=== PATIENT | male | born 1975 | race Caucasian/White ===

== ENCOUNTER 2022-05-05 17:54 | Observation (INO) ==
--- NOTE | 2022-05-05 18:18 | ED.PDOC ---
General <JAYLEEN CHAIREZ MD - Last Filed: 05/05/22 18:41> ED Provider: Dr. 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, hx chf, +cuellar, no fever, no chest pain, +palpitations, no loc, gcs 15, hx htn Time Seen by Provider: 05/05/22 17:55 Mode of Arrival: Walk-In Information Source: Patient Primary Care Provider: MOLLY THURMAN Does patient meet sepsis criteria?: Yes If yes, has appropriate treatment been initiated?: No System Inflammatory Response Syndrome: Not Applicable Sepsis Protocol: For patient's 13 years and over: Temp is 96.8 and below OR 101 and greater Pulse >90 BPM Resp >20/minute Acutely Altered Mental Status Are patient's symptoms suggestive of a new infection, such as: -Pneumonia -Skin, Soft Tissue -Endocarditis -UTI -Bone, Joint Infection -Implantable Device -Acute Abdominal Infection -Wound Infection -Meningitis -Blood Stream Catheter Infection -Unknown <CRISTIANA DIAZ MD - Last Filed: 05/06/22 02:48> Nursing and Triage Documentation Reviewed and Agree: Yes Review of Systems <JAYLEEN CHAIREZ MD - Last Filed: 05/05/22 18:41> Review Of Systems Constitutional: Denies Fever Eyes: Denies Vision change Ears, Nose, Mouth, Throat: Denies Throat pain Respiratory: Reports Short of air Cardiac: Reports Palpitations; Denies Chest pain or Syncope GI: Denies Abdominal pain or Vomiting : Denies Frequency Musculoskeletal: Denies Back pain or Neck pain Skin: Reports Rash; Denies Cyanosis Neurological: Denies Cognitive dysfunction or Headache All Other Systems: Other PFSH <JAYLEEN CHAIREZ MD - Last Filed: 05/05/22 18:41> Medical History CHF (congestive heart failure) ICD (implantable cardioverter-defibrillator) in place Family History FATHER Cancer of esophagus PATERNAL GRANDFATHER Heart attack Other Cancer Social History Smoking and tobacco status: Current every day smoker Tobacco type: cigarettes Alcohol intake: former Details: REPORTS DOES NOT DRINK ANY MORE, WAS AN ALCOHOLIC Surgical History History of mandibular surgery Physical Exam <JAYLEEN CHAIREZ MD - Last Filed: 05/05/22 18:41> Physical Exam Appearance: Reports No pain distress Ill-appearing: None Pain Distress: None Eyes: Reports Conjunctiva clear ENT: Reports Oropharynx normal Neck: Supple Respiratory: Reports Airway patent, Breath sounds clear and Breath sounds equal Cardiovascular: Reports RRR GI/: Reports Soft and Nontender Musculoskeletal: Reports ROM intact and Edema (sen and pulses intact, no streaks, [id number] left ankle, [id number] right ankle, both noncircumferential) Skin: Reports Warm and Dry Neurological: Reports Alert and Oriented Psychiatric: Reports Affect appropriate Interpretation <JAYLEEN CHAIREZ MD - Last Filed: 05/05/22 18:41> EKG Interpretation Time of EKG #1: 18:37 Rate: Normal Rhythm: Sinus Interpretation: lvh, no stemi <CRISTIANA DIAZ MD - Last Filed: 05/06/22 02:48> Critical Care Note Total Critical Care Time (mins): 0 Course <JAYLEEN CHAIREZ MD - Last Filed: 05/05/22 18:41> Course Hematology/Chemistry: 05/05/22 18:31 05/05/22 18:31 Orders, Labs, Meds: Lab Review 05/05/22 05/05/22 05/05/22 18:20 18:31 18:31 WBC 15.19 H RBC 4.76 Hgb 15.8 Hct 45.7 MCV 96.0 H MCH 33.2 H MCHC 34.6 RDW Coeff of Jhonatan 12.8 Plt Count 244 Immature Gran % (Auto) 0.3 Neut % (Auto) 80.8 H Lymph % (Auto) 8.4 L [place] % (Auto) 9.7 Eos % (Auto) 0.5 Baso % (Auto) 0.3 Neut # (Auto) 12.3 H Lymph # (Auto) 1.3 [place] # (Auto) 1.5 Eos # (Auto) 0.1 Baso # (Auto) 0.0 Immature Gran # (Auto) 0.1 PT 11.6 H INR 1.13 Sodium Potassium Chloride Carbon Dioxide Anion Gap BUN Creatinine Estimated GFR (MDRD) BUN/Creatinine Ratio Glucose Calcium Total Bilirubin AST ALT Alkaline Phosphatase Troponin I NT-Pro-B Natriuret Pep Total Protein Albumin Globulin Albumin/Globulin Ratio D-Dimer Urine Opiates Screen Ur Oxycodone Screen Urine Methadone Screen Ur Propoxyphene Screen Ur Barbiturates Screen U Tricyclic Antidepress Ur Phencyclidine Scrn Ur Amphetamine Screen U Methamphetamines Scrn U Benzodiazepines Scrn Urine Cocaine Screen U Cannabinoids Screen Plasma/Serum Alcohol SARS CoV-2 RNA Rapid JESSY Negative 05/05/22 05/05/22 05/05/22 18:31 18:31 19:12 WBC RBC Hgb Hct MCV MCH MCHC RDW Coeff of Jhonatan Plt Count Immature Gran % (Auto) Neut % (Auto) Lymph % (Auto) [place] % (Auto) Eos % (Auto) Baso % (Auto) Neut # (Auto) Lymph # (Auto) [place] # (Auto) Eos # (Auto) Baso # (Auto) Immature Gran # (Auto) PT INR Sodium 136.6 Potassium 3.54 Chloride 94.8 L Carbon Dioxide 34.9 H Anion Gap 10.44 BUN 17.6 Creatinine 1.17 H Estimated GFR (MDRD) 66.00 BUN/Creatinine Ratio 15.04 Glucose 100.9 Calcium 8.42 Total Bilirubin 1.27 AST 39.2 ALT 18.4 Alkaline Phosphatase 63.9 Troponin I < 0.012 NT-Pro-B Natriuret Pep 347 H Total Protein 7.46 Albumin 4.62 Globulin 2.84 Albumin/Globulin Ratio 1.62 D-Dimer 1054.00 H Urine Opiates Screen Negative Ur Oxycodone Screen Negative Urine Methadone Screen Negative Ur Propoxyphene Screen Negative Ur Barbiturates Screen Negative U Tricyclic Antidepress Negative Ur Phencyclidine Scrn Negative Ur Amphetamine Screen Positive H U Methamphetamines Scrn Positive H U Benzodiazepines Scrn Negative Urine Cocaine Screen Negative U Cannabinoids Screen Positive H Plasma/Serum Alcohol < 10.0 SARS CoV-2 RNA Rapid JESSY Orders Category Date Time Status EKG-(ED ONLY) Stat CARDIO 05/05/22 18:18 Completed BLOOD ALCOHOL Stat LAB 05/05/22 18:31 Completed BLOOD CULTURE Stat LAB 05/05/22 19:12 Received CBC W/ AUTO DIFF Stat LAB 05/05/22 18:31 Completed CMP [COMPREHENSIVE METABOLIC PANEL] Stat LAB 05/05/22 18:31 Completed D-DIMER Stat LAB 05/05/22 18:31 Completed DRUG SCREEN, URINE, RAPID Stat LAB 05/05/22 19:12 Completed NT-PROBNP(ED) Stat LAB 05/05/22 18:31 Completed PT WITH INR Stat LAB 05/05/22 18:31 Completed SARS COV-2 RNA RAPID JESSY Stat LAB 05/05/22 18:20 Completed TROPONIN I Stat LAB 05/05/22 18:31 Completed Ampicillin Sodium/Sulbactam Na [Unasyn] MEDS 05/05/22 18:59 Discontinued 3 gm .ROUTE .STK-MED ONE Ampicillin Sodium/Sulbactam Na [Unasyn] 3 gm MEDS 05/05/22 18:43 Discontinued 0.9 % Sodium Chloride [Sodium Chloride 100Ml] 100 ml IV ONCE ANKLE, LEFT MIN 3 VIEWS Stat RADS 05/05/22 18:39 Completed ANKLE, RIGHT MIN 3 VIEWS Stat RADS 05/05/22 18:39 Completed CHEST, 1V AP ONLY Stat RADS 05/05/22 18:18 Completed Medications Generic Name Dose Route Start Last Admin Trade Name Freq PRN Reason Stop Dose Admin Acetaminophen 650 mg 05/05/22 20:16 Acetaminophen 325 Mg Tablet PO Q4H PRN Fever and Mild Pain Carvedilol 6.25 mg 05/05/22 21:00 05/05/22 22:08 Carvedilol 6.25 Mg Tablet PO 6.25 mg BIDWM HAYLEE Administration Enoxaparin Sodium 40 mg 05/06/22 09:00 Enoxaparin Sodium 40 Mg/0.4 Ml Syr SUBCUT DAILY HAYLEE Furosemide 20 mg 05/06/22 09:00 Furosemide Inj 20 Mg/2 Ml Vial IVP DAILY HAYLEE Cefazolin Sodium/Dextrose 1 gm in 50 mls @ 75 mls/hr 05/05/22 21:00 05/05/22 22:07 Ancef 1 Gm/50 Ml D5w IV 05/08/22 20:59 75 mls/hr Q8HR HAYLEE Administration Ibuprofen 600 mg 05/05/22 20:16 Ibuprofen 600 Mg Tablet PO Q6H PRN Mild Pain Lisinopril 20 mg 05/06/22 09:00 Lisinopril 10 Mg Tablet PO DAILY HAYLEE Lorazepam 0.5 mg 05/05/22 21:03 05/05/22 22:08 Lorazepam 0.5 Mg Tablet PO 0.5 mg Q6-8H PRN Administration anxiety Nicotine 1 patch 05/05/22 21:13 05/05/22 22:08 Nicotine 21 Mg Patch.Td24 TD 1 patch DAILY HAYLEE Administration Non-Formulary Medication 100 mg 05/06/22 09:00 Sildenafil PO DAILY HAYLEE Ondansetron HCl 4 mg 05/05/22 20:16 Ondansetron Hcl/Pf 4 Mg/2 Ml Sdv IVP Q6H PRN Nausea / Vomiting Sertraline HCl 100 mg 05/06/22 09:00 Sertraline Hcl 50 Mg Tablet PO DAILY HAYLEE Trazodone HCl 150 mg 05/05/22 21:00 05/05/22 22:07 Trazodone Hcl 50 Mg Tablet PO 150 mg BEDTIME HAYLEE Administration Discontinued Medications Generic Name Dose Route Start Last Admin Trade Name Freq PRN Reason Stop Dose Admin Ampicillin Sodium/Sulbactam 100 mls @ 100 mls/hr 05/05/22 18:43 05/05/22 19:13 Sodium 3 gm/ Sodium Chloride IV 05/05/22 19:42 100 mls/hr ONCE ONE Administration Lorazepam 0.5 mg 05/05/22 20:22 Lorazepam 0.5 Mg Tablet PO PRN PRN anxiety Nicotine 1 patch 05/06/22 09:00 Nicotine 21 Mg Patch.Td24 TD DAILY HAYLEE Vital Signs: Temp Pulse Resp BP Pulse Ox 05/05/22 19:35 99.1 F 81 18 121/82 96 05/05/22 17:56 98.6 F 99 20 153/96 H 93 L <CRISTIANA DIAZ MD - Last Filed: 05/06/22 02:48> Course Orders, Labs, Meds: Lab Review 05/05/22 05/05/22 05/05/22 18:20 18:31 18:31 WBC 15.19 H RBC 4.76 Hgb 15.8 Hct 45.7 MCV 96.0 H MCH 33.2 H MCHC 34.6 RDW Coeff of Jhonatan 12.8 Plt Count 244 Immature Gran % (Auto) 0.3 Neut % (Auto) 80.8 H Lymph % (Auto) 8.4 L [place] % (Auto) 9.7 Eos % (Auto) 0.5 Baso % (Auto) 0.3 Neut # (Auto) 12.3 H Lymph # (Auto) 1.3 [place] # (Auto) 1.5 Eos # (Auto) 0.1 Baso # (Auto) 0.0 Immature Gran # (Auto) 0.1 PT 11.6 H INR 1.13 Sodium Potassium Chloride Carbon Dioxide Anion Gap BUN Creatinine Estimated GFR (MDRD) BUN/Creatinine Ratio Glucose Calcium Total Bilirubin AST ALT Alkaline Phosphatase Troponin I NT-Pro-B Natriuret Pep Total Protein Albumin Globulin Albumin/Globulin Ratio D-Dimer Urine Opiates Screen Ur Oxycodone Screen Urine Methadone Screen Ur Propoxyphene Screen Ur Barbiturates Screen U Tricyclic Antidepress Ur Phencyclidine Scrn Ur Amphetamine Screen U Methamphetamines Scrn U Benzodiazepines Scrn Urine Cocaine Screen U Cannabinoids Screen Plasma/Serum Alcohol SARS CoV-2 RNA Rapid JESSY Negative 05/05/22 05/05/22 05/05/22 18:31 18:31 19:12 WBC RBC Hgb Hct MCV MCH MCHC RDW Coeff of Jhonatan Plt Count Immature Gran % (Auto) Neut % (Auto) Lymph % (Auto) [place] % (Auto) Eos % (Auto) Baso % (Auto) Neut # (Auto) Lymph # (Auto) [place] # (Auto) Eos # (Auto) Baso # (Auto) Immature Gran # (Auto) PT INR Sodium 136.6 Potassium 3.54 Chloride 94.8 L Carbon Dioxide 34.9 H Anion Gap 10.44 BUN 17.6 Creatinine 1.17 H Estimated GFR (MDRD) 66.00 BUN/Creatinine Ratio 15.04 Glucose 100.9 Calcium 8.42 Total Bilirubin 1.27 AST 39.2 ALT 18.4 Alkaline Phosphatase 63.9 Troponin I < 0.012 NT-Pro-B Natriuret Pep 347 H Total Protein 7.46 Albumin 4.62 Globulin 2.84 Albumin/Globulin Ratio 1.62 D-Dimer 1054.00 H Urine Opiates Screen Negative Ur Oxycodone Screen Negative Urine Methadone Screen Negative Ur Propoxyphene Screen Negative Ur Barbiturates Screen Negative U Tricyclic Antidepress Negative Ur Phencyclidine Scrn Negative Ur Amphetamine Screen Positive H U Methamphetamines Scrn Positive H U Benzodiazepines Scrn Negative Urine Cocaine Screen Negative U Cannabinoids Screen Positive H Plasma/Serum Alcohol < 10.0 SARS CoV-2 RNA Rapid JESSY Orders Category Date Time Status EKG-(ED ONLY) Stat CARDIO 05/05/22 18:18 Completed BLOOD ALCOHOL Stat LAB 05/05/22 18:31 Completed BLOOD CULTURE Stat LAB 05/05/22 19:12 Received CBC W/ AUTO DIFF Stat LAB 05/05/22 18:31 Completed CMP [COMPREHENSIVE METABOLIC PANEL] Stat LAB 05/05/22 18:31 Completed D-DIMER Stat LAB 05/05/22 18:31 Completed DRUG SCREEN, URINE, RAPID Stat LAB 05/05/22 19:12 Completed NT-PROBNP(ED) Stat LAB 05/05/22 18:31 Completed PT WITH INR Stat LAB 05/05/22 18:31 Completed SARS COV-2 RNA RAPID JESSY Stat LAB 05/05/22 18:20 Completed TROPONIN I Stat LAB 05/05/22 18:31 Completed Ampicillin Sodium/Sulbactam Na [Unasyn] MEDS 05/05/22 18:59 Discontinued 3 gm .ROUTE .STK-MED ONE Ampicillin Sodium/Sulbactam Na [Unasyn] 3 gm MEDS 05/05/22 18:43 Discontinued 0.9 % Sodium Chloride [Sodium Chloride 100Ml] 100 ml IV ONCE ANKLE, LEFT MIN 3 VIEWS Stat RADS 05/05/22 18:39 Completed ANKLE, RIGHT MIN 3 VIEWS Stat RADS 05/05/22 18:39 Completed CHEST, 1V AP ONLY Stat RADS 05/05/22 18:18 Completed Medications Generic Name Dose Route Start Last Admin Trade Name Freq PRN Reason Stop Dose Admin Acetaminophen 650 mg 05/05/22 20:16 Acetaminophen 325 Mg Tablet PO Q4H PRN Fever and Mild Pain Carvedilol 6.25 mg 05/05/22 21:00 05/05/22 22:08 Carvedilol 6.25 Mg Tablet PO 6.25 mg BIDWM HAYLEE Administration Enoxaparin Sodium 40 mg 05/06/22 09:00 Enoxaparin Sodium 40 Mg/0.4 Ml Syr SUBCUT DAILY HAYLEE Furosemide 20 mg 05/06/22 09:00 Furosemide Inj 20 Mg/2 Ml Vial IVP DAILY HAYLEE Cefazolin Sodium/Dextrose 1 gm in 50 mls @ 75 mls/hr 05/05/22 21:00 05/05/22 22:07 Ancef 1 Gm/50 Ml D5w IV 05/08/22 20:59 75 mls/hr Q8HR HAYLEE Administration Ibuprofen 600 mg 05/05/22 20:16 Ibuprofen 600 Mg Tablet PO Q6H PRN Mild Pain Lisinopril 20 mg 05/06/22 09:00 Lisinopril 10 Mg Tablet PO DAILY HAYLEE Lorazepam 0.5 mg 05/05/22 21:03 05/05/22 22:08 Lorazepam 0.5 Mg Tablet PO 0.5 mg Q6-8H PRN Administration anxiety Nicotine 1 patch 05/05/22 21:13 05/05/22 22:08 Nicotine 21 Mg Patch.Td24 TD 1 patch DAILY HAYLEE Administration Non-Formulary Medication 100 mg 05/06/22 09:00 Sildenafil PO DAILY HAYLEE Ondansetron HCl 4 mg 05/05/22 20:16 Ondansetron Hcl/Pf 4 Mg/2 Ml Sdv IVP Q6H PRN Nausea / Vomiting Sertraline HCl 100 mg 05/06/22 09:00 Sertraline Hcl 50 Mg Tablet PO DAILY HAYLEE Trazodone HCl 150 mg 05/05/22 21:00 05/05/22 22:07 Trazodone Hcl 50 Mg Tablet PO 150 mg BEDTIME HAYLEE Administration Discontinued Medications Generic Name Dose Route Start Last Admin Trade Name Freq PRN Reason Stop Dose Admin Ampicillin Sodium/Sulbactam 100 mls @ 100 mls/hr 05/05/22 18:43 05/05/22 19:13 Sodium 3 gm/ Sodium Chloride IV 05/05/22 19:42 100 mls/hr ONCE ONE Administration Lorazepam 0.5 mg 05/05/22 20:22 Lorazepam 0.5 Mg Tablet PO PRN PRN anxiety Nicotine 1 patch 05/06/22 09:00 Nicotine 21 Mg Patch.Td24 TD DAILY HAYLEE Vital Signs: Temp Pulse Resp BP Pulse Ox 05/05/22 19:35 99.1 F 81 18 121/82 96 05/05/22 17:56 98.6 F 99 20 153/96 H 93 L Discharge Plan Discharge Patient Disposition: PLACED OBSERVATION Discharge Problem: Cellulitis of right lower leg, Edema of right lower leg ED Provider: JAYLEEN CHAIREZ Condition: Stable <JAYLEEN CHAIREZ MD - Last Filed: 05/05/22 18:41> Physician Progress Note: care to the midnight doctor at 19:00 []
[2022-05-05 18:36] LABS: BASOPHILS % (AUTO) 0.3 % (0.0-3.0); EOSINOPHILS # (AUTO) 0.1 K/ul (0.0-0.7); EOSINOPHILS % (AUTO) 0.5 % (0.0-7.0); HEMATOCRIT 45.7 % (42.0-52.0); HEMOGLOBIN 15.8 g/dl (14.0-18.0); IMMATURE GRANULOCYTE # (AUTO) 0.1 (0.0-1.0); IMMATURE GRANULOCYTE % (AUTO) 0.3 % (0.0-5.0); LYMPHOCYTES # (AUTO) 1.3 K/uL (0.60-3.4); LYMPHOCYTES % (AUTO) 8.4 (10.0-50.0); MEAN CORPUSCULAR HEMOGLOBIN 33.2 pg (27.0-31.0); MEAN CORPUSCULAR HGB CONC 34.6 (31.8-35.4); MONOCYTES # (AUTO) 1.5 K/uL (0.4-2.0); MONOCYTES % (AUTO) 9.7 (0-10); NEUTROPHILS # (AUTO) 12.3 K/ul (2.0-6.9); NEUTROPHILS % (AUTO) 80.8 % (42.2-75.2); PLATELET COUNT 244 10^3/uL (140-440); RDW COEFFICIENT OF VARIATION 12.8 % (11.6-14.8); RED BLOOD COUNT 4.76 10^6/ul (4.70-6.10); WHITE BLOOD COUNT 15.19 K/ul (4.2-10.2)
[2022-05-05] MEDS ORDERED: UNASYN 3 GM in SODIUM CHLORIDE 100ML 100 ML IV ONE (18:43)
[2022-05-05 18:47] LABS: PROTHROMBIN TIME 11.6 SEC (9.3-11.0)
--- NOTE | 2022-05-05 18:49 | DI ---
EXAMINATION: AP CHEST RADIOGRAPH. HISTORY: Short of breath COMPARISON: None available. FINDINGS: Mild right infrahilar atelectasis is seen.No focal consolidation, pleural effusion or pneumothorax is identified. The cardiomediastinal silhouette is within normal limits. A left chest wall pacing device is noted. IMPRESSION: No acute cardiopulmonary findings. Mild right infrahilar atelectasis.
[2022-05-05 18:50] LABS: ALANINE AMINOTRANSFERASE 18.4 U/L (0-50); ALBUMIN 4.62 g/dL (3.5-5.0); ALKALINE PHOSPHATASE 63.9 U/L (38-126); ASPARTATE AMINO TRANSFERASE 39.2 U/L (17-59); BILIRUBIN,TOTAL 1.27 mg/dL (0.2-1.3); BLOOD UREA NITROGEN 17.6 mg/dL (9-20); CALCIUM 8.42 mg/dL (8.4-10.2); CARBON DIOXIDE 34.9 mmol/L (22-30.0); CHLORIDE 94.8 mmol/L (98-107); CREATININE 1.17 mg/dL (0.60-1.10); GLUCOSE 100.9 mg/dL (74-106); POTASSIUM 3.54 mmol/L (3.5-5.1); SODIUM 136.6 mmol/L (134.5-145); TOTAL PROTEIN 7.46 g/dL (6.3-8.2)
[2022-05-05] MEDS ORDERED: UNASYN ONE (18:59)
[2022-05-05 19:02] LABS: BLOOD ALCOHOL < 10.0 mg/dL (0.0-50.0); TROPONIN I < 0.012 ng/ml (0.0000-0.120)
[2022-05-05 19:08] LABS: SARS COV-2 RNA RAPID NAAT NEGATIVE (NEGATIVE)
--- NOTE | 2022-05-05 19:13 | DI ---
EXAM: THREE VIEWS RIGHT ANKLE HISTORY: Swelling COMPARISON: None available FINDINGS: No fracture or dislocation is identified. The ankle mortise is symmetric. The talar dome contour is normal. Medial soft tissue swelling is seen. IMPRESSION: No acute osseous abnormality. Medial soft tissue swelling.
--- NOTE | 2022-05-05 19:13 | DI ---
EXAM: THREE VIEWS LEFT ANKLE HISTORY: Swelling COMPARISON: None available FINDINGS: No fracture or dislocation is identified. The ankle mortise is symmetric. The talar dome contour is normal. Generalized soft tissue swelling is seen. IMPRESSION: No acute osseous abnormality. Generalized soft tissue swelling.
[2022-05-05 19:34] LABS: AMPHETAMINE SCREEN,URINE POSITIVE (NEGATIVE); BARBITURATE SCREEN,URINE NEGATIVE (NEGATIVE); BENZODIAZEPINES SCREEN,URINE NEGATIVE (NEGATIVE); CANNABINOID SCREEN,URINE POSITIVE (NEGATIVE); COCAIN SCREEN,URINE NEGATIVE (NEGATIVE); METHADONE URINE SCREEN NEGATIVE (NEGATIVE); METHAMPHETAMINES SCREEN,URINE POSITIVE (NEGATIVE); OPIATE SCREEN,URINE NEGATIVE (NEGATIVE); OXYCODONE URINE SCREEN NEGATIVE (NEGATIVE); PHENCYCLIDINE SCREEN,URINE NEGATIVE (NEGATIVE); PROPOXYPHENE URINE SCREEN NEGATIVE (NEGATIVE); TRICYCLIC ANTIDEPRESSANTS URIN NEGATIVE (NEGATIVE)
[2022-05-05] MEDS ORDERED: ZOFRAN 4 MG/2 ML IVP PRN (20:16)
[2022-05-05] MEDS ORDERED: TYLENOL PO PRN (20:16)
[2022-05-05] MEDS ORDERED: MOTRIN PO PRN (20:16)
[2022-05-05] MEDS ORDERED: ATIVAN PO PRN (20:22)
[2022-05-05] MEDS ORDERED: SODIUM CHLORIDE 1,000 ML IV SCH (20:30)
[2022-05-05] MEDS ORDERED: NICODERM 21 MG TD SCH (21:13)
[2022-05-05 21:20] VITALS: BMI 24.8
[2022-05-05] MEDS: DESYREL PO SCH (22:07)
[2022-05-05] MEDS: ANCEF 1 GM/50 ML D5W 1 GM/50 ML BAG IV SCH (22:07)
[2022-05-05] MEDS: ATIVAN PO PRN (22:08)
[2022-05-05] MEDS: COREG PO SCH (22:08)
[2022-05-06] MEDS: ANCEF 1 GM/50 ML D5W 1 GM/50 ML BAG IV SCH ×3 (04:45→20:42)
[2022-05-06 05:05] LABS: BASOPHILS % (AUTO) 0.2 % (0.0-3.0); EOSINOPHILS # (AUTO) 0.1 K/ul (0.0-0.7); EOSINOPHILS % (AUTO) 0.9 % (0.0-7.0); HEMATOCRIT 42.4 % (42.0-52.0); HEMOGLOBIN 14.4 g/dl (14.0-18.0); IMMATURE GRANULOCYTE % (AUTO) 0.3 % (0.0-5.0); LYMPHOCYTES # (AUTO) 1.4 K/uL (0.60-3.4); LYMPHOCYTES % (AUTO) 13.2 (10.0-50.0); MEAN CORPUSCULAR HEMOGLOBIN 32.7 pg (27.0-31.0); MEAN CORPUSCULAR VOLUME 96.1 fl (80.0-94.0); MONOCYTES % (AUTO) 9.9 (0-10); NEUTROPHILS % (AUTO) 75.5 % (42.2-75.2); PLATELET COUNT 244 10^3/uL (140-440); RDW COEFFICIENT OF VARIATION 12.7 % (11.6-14.8); RED BLOOD COUNT 4.41 10^6/ul (4.70-6.10); WHITE BLOOD COUNT 10.52 K/ul (4.2-10.2)
[2022-05-06 05:16] LABS: BLOOD UREA NITROGEN 19.2 mg/dL (9-20); CALCIUM 8.14 mg/dL (8.4-10.2); CARBON DIOXIDE 32.4 mmol/L (22-30.0); CHLORIDE 98.7 mmol/L (98-107); CREATININE 1.24 mg/dL (0.60-1.10); GLUCOSE 107.2 mg/dL (74-106); POTASSIUM 2.99 mmol/L (3.5-5.1); SODIUM 135.7 mmol/L (134.5-145)
[2022-05-06] MEDS: COREG PO SCH ×2 (08:09→17:25)
[2022-05-06] MEDS: ZESTRIL PO SCH (08:09)
[2022-05-06] MEDS: ZOLOFT PO SCH (08:09)
[2022-05-06] MEDS: LOVENOX SUBCUT SCH (08:10)
[2022-05-06] MEDS: LASIX IVP SCH (08:50)
[2022-05-06] MEDS ORDERED: NICODERM 21 MG TD SCH ×2 (09:00→21:00)
[2022-05-06] MEDS ORDERED: NON-FORMULARY MEDICATION (Sildenafil 100 mg Tablet) PO SCH (09:00)
--- NOTE | 2022-05-06 09:17 | PCM.PROG ---
Date Seen by Provider: 05/06/22 Time Seen by Provider: 09:15 Subjective: dx. cellulitis Objective: Vitals: T=98.2 F, P=88, R=18, BP=86/56, SPO2=93 HEENT: []conjunctiva clear Neck: []supple Lungs: [] no respiratory distress CVS: [] Abdomen: []nondistended Extremities: []edema, erythema Neurological: []alert Skin: [] Lab/Tests/Diagnostic Imaging: [] whc 15, cxr nap Plan: continue iv antibiotic, discharge tomorrow
[2022-05-06] MEDS: DESYREL PO SCH (20:42)
[2022-05-06] MEDS: ATIVAN PO PRN (20:43)
[2022-05-07 05:17] LABS: BASOPHILS % (AUTO) 0.2 % (0.0-3.0); EOSINOPHILS # (AUTO) 0.1 K/ul (0.0-0.7); EOSINOPHILS % (AUTO) 1.1 % (0.0-7.0); HEMOGLOBIN 14.2 g/dl (14.0-18.0); IMMATURE GRANULOCYTE % (AUTO) 0.2 % (0.0-5.0); LYMPHOCYTES # (AUTO) 1.4 K/uL (0.60-3.4); LYMPHOCYTES % (AUTO) 14.9 (10.0-50.0); MEAN CORPUSCULAR HEMOGLOBIN 33.3 pg (27.0-31.0); MEAN CORPUSCULAR HGB CONC 34.6 (31.8-35.4); MONOCYTES # (AUTO) 0.9 K/uL (0.4-2.0); MONOCYTES % (AUTO) 9.1 (0-10); NEUTROPHILS # (AUTO) 7.2 K/ul (2.0-6.9); NEUTROPHILS % (AUTO) 74.5 % (42.2-75.2); PLATELET COUNT 232 10^3/uL (140-440); RDW COEFFICIENT OF VARIATION 12.8 % (11.6-14.8); RED BLOOD COUNT 4.27 10^6/ul (4.70-6.10); WHITE BLOOD COUNT 9.64 K/ul (4.2-10.2)
[2022-05-07] MEDS: ANCEF 1 GM/50 ML D5W 1 GM/50 ML BAG IV SCH (05:23)
[2022-05-07 05:34] LABS: BLOOD UREA NITROGEN 13.4 mg/dL (9-20); CALCIUM 8.1 mg/dL (8.4-10.2); CREATININE 0.91 mg/dL (0.60-1.10); GLUCOSE 91.3 mg/dL (74-106); POTASSIUM 3.25 mmol/L (3.5-5.1); SODIUM 139.2 mmol/L (134.5-145)
[2022-05-07] MEDS: LASIX IVP SCH (05:44)
--- NOTE | 2022-05-07 08:40 | PCM.PROG ---
Date Seen by Provider: 05/07/22 Time Seen by Provider: 08:00 Subjective: Feeling better. Objective: Vitals: T=97.9 F, P=82, R=16, RC=764/91, SPO2=93 Alert and in NAD HEENT: [] Neck: [] Lungs: [] CVS: [] Abdomen: [] Extremities: [] Minimal peripheral edema. RLE with minimal erythema. LLE with mild erythema. No tenderness or drainage. Neurological: [] Skin: [] Lab/Tests/Diagnostic Imaging: [] (1) Bilateral lower leg cellulitis: Status: Acute Code(s): L03.116 - Cellulitis of left lower limb; L03.115 - Cellulitis of right lower limb SNOMED Code(s): 354657696 (2) Edema of both lower legs: Status: Acute Code(s): R60.0 - Localized edema SNOMED Code(s): 682255060 Plan: Patient much improved. Will discharge on oral antibiotics.
--- NOTE | 2022-05-07 08:44 | PCM.DC ---
Final Diagnosis: bilateral lower extremity cellulitis bilateral lower extremity edema Physical Exam Appearance: Well-appearing, No pain distress, Well-nourished and Thin Ill-appearing: None Pain Distress: None Eyes: LJ and EOMI ENT: Nose normal and Oropharynx normal Neck: Supple Respiratory: Airway patent, Breath sounds clear and Breath sounds equal Cardiovascular: RRR, No rub and No murmur GI/: Soft, Nontender, No masses, Bowel sounds normal and No Organomegaly Musculoskeletal: Other (Minimal bilateral lower extremity edema. RLE with minimal erythema. Mild LLE erythema.) Skin: Warm and Dry Neurological: Alert and Oriented Psychiatric: Affect appropriate and Mood appropriate (1) Bilateral lower leg cellulitis: Status: Acute Code(s): L03.116 - Cellulitis of left lower limb; L03.115 - Cellulitis of right lower limb SNOMED Code(s): 501013671 (2) Edema of both lower legs: Status: Acute Code(s): R60.0 - Localized edema SNOMED Code(s): 280402881 Reason for Hospitalization: bilateral lower extremity cellulitis Prognosis/Condition at Discharge: Condition at discharge was stable Medications at Discharge: Patient discharged home on cephalexin in addition to the same meds at admission. Education Provided to Patient and Family: cellulitis Follow-ups: Follow up with primary care provider next week. Discharge Disposition: Home Hospital Course: Patient received Ancef for bilateral lower extremity cellulitis. Cellulitis responded well. Discharged to home on the third day of hospitalization. Plan: DC on cephalexin. Follow up with primary care provider next week.
[2022-05-07] MEDS ORDERED: K-DUR PO ONE (09:05)
[2022-05-07] MEDS: ZOLOFT PO SCH (09:23)
[2022-05-07] MEDS: COREG PO SCH (09:24)
[2022-05-07] MEDS: ZESTRIL PO SCH (09:24)
[2022-05-07] MEDS: LOVENOX SUBCUT SCH (09:26)
[2022-05-07 10:05] VITALS: BP 124/80; TEMP 96.9
== END 2022-05-07 10:45 | disposition home or self-care (01) ==
LOC: MEDSURG A 17:54 → ED 17:54 → MEDSURG A 20:54
PROVIDERS: ADMIT Internal Medicine Geriatric Medicine; ATTEND Surgery
DX: F15.10 Other stimulant abuse, uncomplicated; R60.0 Localized edema; F11.90 Opioid use, unspecified, uncomplicated; L03.116 Cellulitis of left lower limb; L03.115 Cellulitis of right lower limb; Z51.81 Encounter for therapeutic drug level monitoring; Z20.822 Contact with and (suspected) exposure to COVID-19; F17.210 Nicotine dependence, cigarettes, uncomplicated; Z79.899 Other long term (current) drug therapy; R06.02 Shortness of breath